=== PATIENT | male | born 1955 | race African-American/Black ===

== ENCOUNTER 2019-03-27 16:56 | Inpatient (IN) | payer OTHER ==
[2019-03-27 19:46] VITALS: BMI 26.6
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
[2019-03-27] MEDS ORDERED: MAGNESIUM CITRATE 300 ML BOTTLE PO PRN (20:53)
[2019-03-27] MEDS ORDERED: BISMUTH SUBSALICYLATE 524 MG/30 ML UD PO PRN (20:53)
[2019-03-27] MEDS ORDERED: P-EPHED 60MG/TRIPROLIDI 2.5MG TABLET PO PRN (20:53)
[2019-03-27] MEDS ORDERED: IBUPROFEN 400 MG TABLET (FP) PO PRN ×2 (20:53)
[2019-03-27] MEDS ORDERED: DICYCLOMINE HCL 10 MG CAPSULE PO PRN (20:53)
[2019-03-27] MEDS ORDERED: guaiFENesin 200 MG/10 ML 10 ML UNIT-DOSE CUPS PO PRN (20:53)
[2019-03-27] MEDS ORDERED: cloNIDine HCL 0.1 MG TABLET PO PRN (20:53)
[2019-03-27] MEDS ORDERED: NICOTINE POLACRILEX 2 MG GUM BUC PRN (20:53)
[2019-03-27] MEDS ORDERED: MAGNESIUM HYDROX 2400MG/30ML ORAL SUSPENSION 30 ML CUP PO PRN (20:53)
[2019-03-27] MEDS ORDERED: MENTHOL/PHENOL 1 EACH UD MM PRN (20:53)
[2019-03-27] MEDS ORDERED: MELATONIN 5 MG TABLETS PO PRN (20:53)
[2019-03-27] MEDS ORDERED: hydrOXYzine PAMOATE 25 MG CAPSULE (FP) PO PRN (20:53)
[2019-03-27] MEDS ORDERED: MAG HYDROX/AL HYDROX/SIMETH 30 ML UNIT-DOSE CUP PO PRN (20:53)
[2019-03-27] MEDS ORDERED: METHOCARBAMOL 500 MG TABLET PO PRN (20:53)
[2019-03-27] MEDS ORDERED: ONDANSETRON *ODT* 4 MG TABLET SL PRN (20:53)
[2019-03-27] MEDS ORDERED: ACETAMINOPHEN 325 MG TABLET (FP) PO PRN ×2 (20:53)
[2019-03-27] MEDS ORDERED: NALOXONE HCL 0.4 MG/ML VIAL IVPUSH PRN (20:53)
[2019-03-27] MEDS ORDERED: METHADONE HCL 5 MG TABLET (FOR DETOX USE ONLY) PO ONE (21:00)
[2019-03-27] MEDS ORDERED: clonazePAM 0.5 MG TABLET PO PRN (21:06)
[2019-03-27] MEDS: THIAMINE HCL 100 MG TABLET (FP) PO SCH (21:54)
[2019-03-27] MEDS: TAMSULOSIN HCL 0.4 MG CAP PO SCH (21:59)
[2019-03-27] MEDS: GABAPENTIN 100 MG CAPSULE (FP) PO SCH (21:59)
[2019-03-27] MEDS ORDERED: METHADONE HCL 10 MG TABLET (FOR DETOX USE ONLY) PO ONE (23:00)
[2019-03-28] MEDS: GABAPENTIN 100 MG CAPSULE (FP) PO SCH ×3 (06:08→22:20)
--- NOTE | 2019-03-28 08:53 | EKG ---
Test Reason : Blood Pressure : / mmHG Vent. Rate : 051 BPM Atrial Rate : 051 BPM P-R Int : 232 ms QRS Dur : 110 ms QT Int : 424 ms P-R-T Axes : 066 040 056 degrees QTc Int : 390 ms SINUS BRADYCARDIA WITH 1ST DEGREE A-V BLOCK INCOMPLETE RIGHT BUNDLE BRANCH BLOCK VOLTAGE CRITERIA FOR LEFT VENTRICULAR HYPERTROPHY ABNORMAL ECG NO PREVIOUS ECGS AVAILABLE Confirmed by JOANN JASSO, JUAN ([id number]) on 03/28/2019 8:52:52 AM Referred By: Confirmed By:JUAN DAVID MD
[2019-03-28] MEDS ORDERED: METHADONE HCL 5 MG TABLET (FOR DETOX USE ONLY) PO ONE (10:00)
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
[2019-03-28] MEDS: NICOTINE 14 MG/24 HOURS TOPICAL PATCH TD SCH (10:28)
[2019-03-28] MEDS: PRENATAL VITAMINS W/ FOLIC ACID TABLET (FP) PO SCH (10:32)
[2019-03-28] MEDS: amLODIPine BESYLATE 5 MG TABLET (FP) PO SCH (10:32)
[2019-03-28] MEDS ORDERED: TRIMETHOBENZAMIDE HCL 200MG/2ML INJ IM PRN (10:47)
[2019-03-28 10:51] LABS: HEMOGLOBIN 10.6 GM/dL (11.7-16.9); MCHC 32.1 g/dl (32.0-35.9); MEAN CELL VOLUME 84.2 fl (80-96); MEAN PLT VOLUME 8.1 fl (7.5-11.1); PLATELET COUNT 332 K/MM3 (134-434); RBC 3.92 M/mm3 (4.00-5.60)
[2019-03-28 11:10] LABS: EPI CELLS 0.7 /HPF (0-5/HPF); URINE APPEARANCE TURBID; URINE BACTERIA 5.7 /hpf (NEGATIVE); URINE BILIRUBIN 1+ (NEGATIVE); URINE CASTS 3 /lpf (0-8); URINE COLOR DK YELLOW; URINE GLUCOSE (UA) NEGATIVE (NEGATIVE); URINE KETONE TRACE (NEGATIVE); URINE LEUK ESTERASE TRACE (NEGATIVE); URINE NITRITE NEGATIVE (NEGATIVE); URINE PROTEIN TRACE (NEGATIVE); URINE WBC 1 /hpf (0-5)
[2019-03-28 11:33] LABS: ALK PHOS 81 U/L (45-117); BILIRUBIN,TOTAL 0.4 mg/dL (0.2-1); CALCIUM 9.5 mg/dL (8.5-10.1); CHLORIDE 100 mmol/L (98-107); CREATININE 0.9 mg/dL (0.55-1.3); GLUCOSE,RANDOM 100 mg/dL (74-106); POTASSIUM 3.4 mmol/L (3.5-5.1); SGPT/ALT 40 U/L (13-61); SODIUM 138 mmol/L (136-145)
[2019-03-28 12:10] LABS: URINE RBC 14.9 /hpf (0-4)
[2019-03-28 12:12] LABS: URINE CRYSTALS CALCIUM OXALATE /hpf
[2019-03-28 13:36] LABS: ALBUMIN 3.8 g/dl (3.4-5.0); ANION GAP 4 MMOL/L (8-16); BLOOD UREA NITROGEN 13 mg/dL (7-18); CO2 34 mmol/L (21-32); SGOT/AST 40 U/L (15-37)
[2019-03-28] MEDS: SERTRALINE HCL 50 MG TABLET (FP) PO SCH (14:52)
[2019-03-28] MEDS ORDERED: ONDANSETRON *ODT* 4 MG TABLET SL ONE (15:23)
[2019-03-28] MEDS ORDERED: POTASSIUM CHLORIDE ORAL LIQUID 20 MEQ/15 ML PO ONE ×2 (15:50→21:00)
--- NOTE | 2019-03-28 16:04 | PN ---
BHS COWS - Scale Resting Pulse: 0= [place] 80 or Below Sweatin= Chills/Flushing Restless Observation: 3= Extraneous Movement Pupil Size: 0= Normal to Room Light Bone or Joint Aches: 2= Severe Diffuse Aches Runny Nose/ Eye Tearin= Runny Nose/Eyes GI Upset > 30mins: 3= Vomiting/Diarrhea Tremor Observation of Outstretched Hands: 2= Slight Tremor Visible Yawning Observation: 0= None Anxiety or Irritability: 2=Irritable/Anxious Goose Flesh Skin: 0=Smooth Skin COWS Score: 15 BHS Progress Note (SOAP) Subjective: Stomachache, N/V/D, interrupted sleep, anxious. As per assigned RN, patient vomited moderate amount of clear liquids mixed with a little bit of food content. Patient agreed to clear liquid diet until vomiting subsided. Objective: 03/28/19 15:54 Last Vital Signs Temp Pulse Resp BP Pulse Ox 97.9 F 59 L 16 159/91 03/28/19 14:03 03/28/19 14:03 03/28/19 14:03 03/28/19 14:03 B/P elevated (has htn, on medication) Laboratory Tests 03/28/19 03/28/19 03/28/19 07:50 07:50 07:50 WBC 9.0 RBC 3.92 L Hgb 10.6 L Hct 33.0 L MCV 84.2 MCH 27.0 MCHC 32.1 RDW 18.0 H Plt Count 332 MPV 8.1 Sodium 138 Potassium 3.4 L Chloride 100 Carbon Dioxide 34 H Anion Gap 4 L BUN 13 Creatinine 0.9 Creat Clearance w eGFR 84.96 Random Glucose 100 Calcium 9.5 Total Bilirubin 0.4 AST 40 H ALT 40 Alkaline Phosphatase 81 Total Protein 8.0 Albumin 3.8 Urine Color Urine Appearance Urine pH Ur Specific [place] Urine Protein Urine Glucose (UA) Urine Ketones Urine Blood Urine Nitrite Urine Bilirubin Urine Urobilinogen Ur Leukocyte Esterase Urine WBC (Auto) Urine RBC (Auto) Urine Casts (Auto) U Epithel Cells (Auto) Urine Crystals (Auto) Urine Bacteria (Auto) RPR Titer Nonreactive 03/28/19 08:56 WBC RBC Hgb Hct MCV MCH MCHC RDW Plt Count MPV Sodium Potassium Chloride Carbon Dioxide Anion Gap BUN Creatinine Creat Clearance w eGFR Random Glucose Calcium Total Bilirubin AST ALT Alkaline Phosphatase Total Protein Albumin Urine Color Dk yellow Urine Appearance Turbid Urine pH 7.0 Ur Specific [place] 1.027 Urine Protein Trace Urine Glucose (UA) Negative Urine Ketones Trace H Urine Blood Negative Urine Nitrite Negative Urine Bilirubin 1+ H Urine Urobilinogen 1.0 Ur Leukocyte Esterase Trace Urine WBC (Auto) 1 Urine RBC (Auto) 14.9 Urine Casts (Auto) 3 U Epithel Cells (Auto) 0.7 Urine Crystals (Auto) Calcium oxalate Urine Bacteria (Auto) 5.7 RPR Titer Labs reviewed: mild anemia, mild hypokalemia and abnormal UA Assessment: 03/28/19 15:56 Withdrawal symptoms Noted with mild anemia, hypokalemia and abnormal UA Plan: Continue detox Encouraged PO water hydration Zofran 4mg SL x 1 dose for nausea, continue zofran 4mg SL q12hr prn Tigan 200mg IM q8hr prn for vomiting Clear liquid diet for now due to vomiting, can advance diet as tolerated Mild anemia: most likely r/t substance use, encouraged abstinence from illicit drug use Hypokalemia: K Dur 40 MEq elixir x 2 doses (give at least 4 hours apart) then K Dur 20 MEq PO daily, send BMP in AM (K Dur continues due to vomiting) Abnormal UA: encouraged PO water hydration, repeat UA in AM
[2019-03-28] MEDS: QUEtiapine FUMARATE 300 MG TABLET PO SCH (22:20)
[2019-03-28] MEDS: TAMSULOSIN HCL 0.4 MG CAP PO SCH (22:20)
[2019-03-28] MEDS: THIAMINE HCL 100 MG TABLET (FP) PO SCH (22:21)
[2019-03-29] MEDS: GABAPENTIN 100 MG CAPSULE (FP) PO SCH (07:55)
[2019-03-29] MEDS ORDERED: METHADONE HCL 10 MG TABLET (FOR DETOX USE ONLY) PO ONE (10:00)
[2019-03-29] MEDS: amLODIPine BESYLATE 5 MG TABLET (FP) PO SCH (10:23)
[2019-03-29] MEDS: SERTRALINE HCL 50 MG TABLET (FP) PO SCH (10:23)
[2019-03-29] MEDS: PRENATAL VITAMINS W/ FOLIC ACID TABLET (FP) PO SCH (10:23)
[2019-03-29] MEDS: NICOTINE 14 MG/24 HOURS TOPICAL PATCH TD SCH (10:23)
[2019-03-29] MEDS: POTASSIUM CHLORIDE TABS 20 MEQ TABLET.ER (FP) PO SCH (10:31)
--- NOTE | 2019-03-29 11:21 | PN ---
BHS COWS - Scale Resting Pulse: 1= [place] 81-100 Sweatin= Chills/Flushing Restless Observation: 1= Difficult to Sit Still Pupil Size: 0= Normal to Room Light Bone or Joint Aches: 2= Severe Diffuse Aches Runny Nose/ Eye Tearin= None GI Upset > 30mins: 3= Vomiting/Diarrhea Tremor Observation of Outstretched Hands: 0= None Yawning Observation: 1= 1-2x During Session Anxiety or Irritability: 4=Extreme Anxiety Goose Flesh Skin: 0=Smooth Skin COWS Score: 13 BHS Progress Note (SOAP) Subjective: Interrupted Sleep, Anxious, Diarrhea, Sweating, Vomiting, Body Aches. Objective: PATIENT A & O X 3, OBSERVED AMBULATING ON UNIT UNASSISTED. IN NO ACUTE DISTRESS. 03/29/19 11:18 Vital Signs Temperature 98.8 F 03/29/19 09:26 Pulse Rate 67 03/29/19 09:26 Respiratory Rate 16 03/29/19 09:26 Blood Pressure 140/81 03/29/19 09:26 O2 Sat by Pulse Oximetry (%) Laboratory Tests 03/28/19 03/28/19 03/28/19 07:50 07:50 07:50 WBC 9.0 RBC 3.92 L Hgb 10.6 L Hct 33.0 L MCV 84.2 MCH 27.0 MCHC 32.1 RDW 18.0 H Plt Count 332 MPV 8.1 Sodium 138 Potassium 3.4 L Chloride 100 Carbon Dioxide 34 H Anion Gap 4 L BUN 13 Creatinine 0.9 Creat Clearance w eGFR 84.96 Random Glucose 100 Calcium 9.5 Total Bilirubin 0.4 AST 40 H ALT 40 Alkaline Phosphatase 81 Total Protein 8.0 Albumin 3.8 Urine Color Urine Appearance Urine pH Ur Specific [place] Urine Protein Urine Glucose (UA) Urine Ketones Urine Blood Urine Nitrite Urine Bilirubin Urine Urobilinogen Ur Leukocyte Esterase Urine WBC (Auto) Urine RBC (Auto) Urine Casts (Auto) U Epithel Cells (Auto) Urine Crystals (Auto) Urine Bacteria (Auto) RPR Titer Nonreactive 03/28/19 08:56 WBC RBC Hgb Hct MCV MCH MCHC RDW Plt Count MPV Sodium Potassium Chloride Carbon Dioxide Anion Gap BUN Creatinine Creat Clearance w eGFR Random Glucose Calcium Total Bilirubin AST ALT Alkaline Phosphatase Total Protein Albumin Urine Color Dk yellow Urine Appearance Turbid Urine pH 7.0 Ur Specific [place] 1.027 Urine Protein Trace Urine Glucose (UA) Negative Urine Ketones Trace H Urine Blood Negative Urine Nitrite Negative Urine Bilirubin 1+ H Urine Urobilinogen 1.0 Ur Leukocyte Esterase Trace Urine WBC (Auto) 1 Urine RBC (Auto) 14.9 Urine Casts (Auto) 3 U Epithel Cells (Auto) 0.7 Urine Crystals (Auto) Calcium oxalate Urine Bacteria (Auto) 5.7 RPR Titer LABS NOTED. RESULTS OF BMP AND OF REPEAT UA PENDING. 03/29/19 11:20 Assessment: 03/29/19 11:19 WITHDRAWAL SYMPTOMS. HYPOKALEMIA. 03/29/19 11:20 Plan: CONTINUE DETOX. INCREASE DAILY PO FLUID / WATER INTAKE. CONTINUE K-DUR DAILY. PRN TIGAN IM FOR NAUSEA / VOMITING. PRN PEPTO-BISMOL PO FOR DIARRHEA.
--- NOTE | 2019-03-29 14:23 | PN ---
S Progress Note Note: Received notification from clinical scientist Mary Grace Louis that Patien t no longer wish to have Clear Liquid diet as ordered by medical provider yesterday for frequent vomiting.
[2019-03-29] MEDS: GABAPENTIN 300 MG CAPSULE (FP) PO SCH ×2 (15:29→22:25)
--- NOTE | 2019-03-29 15:47 | PN ---
[facility] Progress Note Note: Received Telephone call from Adilson Dickerson RN, informing that Patient has had elevated Temp. X last two readings. However, Patient Was given dose of Tylenol X 1 (@ 13:15) after initial elevated reading (101.7), and that second reading was later reduced to 100.0. Patient also reports H/A affecting Left side of head (Patient did not report this earlier during AM Rounds assessment). Patient deos reprot that Nausea /Vomiting that he reported to OCCUPATIONAL SAFETY AND HEALTH MANAGER earlier on in AM has subsided considerably at this time. Ms. Dickerson advised to give Patient a dose of PRN Ibuprofen at this time and to monitor and to assess Temp. and H/A in the next 1-2 hours. Shukri Marcelino OCCUPATIONAL SAFETY AND HEALTH MANAGER
[2019-03-29] MEDS: THIAMINE HCL 100 MG TABLET (FP) PO SCH (22:25)
[2019-03-29] MEDS: QUEtiapine FUMARATE 300 MG TABLET PO SCH (22:25)
[2019-03-29] MEDS: TAMSULOSIN HCL 0.4 MG CAP PO SCH (22:26)
[2019-03-30] MEDS ORDERED: METHADONE HCL 5 MG TABLET (FOR DETOX USE ONLY) PO ONE (06:00)
[2019-03-30] MEDS: GABAPENTIN 300 MG CAPSULE (FP) PO SCH (06:38)
[2019-03-30 08:20] VITALS: BP 130/7; PULSE 60; TEMP 96.1
--- NOTE | 2019-03-30 08:49 | DS ---
[facility] Detox Discharge Summary Admission Date: 03/27/19 Discharge Date: 03/30/19 - History Present History: Alcohol Dependence, Cannabis Dependence, Opioid Dependence, Sedative Dependence - Physical Exam Results Vital Signs: Vital Signs Temperature 96.1 F L 03/30/19 08:20 Pulse Rate 60 03/30/19 08:20 Respiratory Rate 18 03/30/19 08:20 Blood Pressure 130/7 L 03/30/19 08:20 O2 Sat by Pulse Oximetry (%) - Treatment Hospital Course: Detox Protocol Followed, Detoxed Safely, Responded well, Discharged Condition Good, Rehab Referral Accepted - Medication Discharge Medications: Ambulatory Orders Gabapentin [Neurontin -] 600 mg PO TID 07/30/16 Sertraline HCl [Zoloft -] 150 mg PO DAILY 07/30/16 Buspirone HCl [Buspar -] 10 mg PO BID@1000,1400 #60 tablet 08/23/16 Quetiapine Fumarate [Seroquel -] 300 mg PO HS #30 tablet 08/23/16 Tamsulosin HCl [Flomax -] 0.4 mg PO HS #30 cap.er.24h 08/23/16 Amlodipine Besylate [Norvasc -] 5 mg PO DAILY #30 tablet 08/26/16 - Diagnosis (1) Cannabis dependence Current Visit: Yes Status: Chronic (2) Cocaine dependence Current Visit: Yes Status: Chronic Qualifiers: Substance use status: uncomplicated Qualified Code(s): F14.20 - Cocaine dependence, uncomplicated (3) Opioid dependence with withdrawal Current Visit: Yes Status: Chronic (4) Substance induced mood disorder Current Visit: Yes Status: Acute (5) Substance-induced sleep disorder Current Visit: Yes Status: Acute (6) Benign prostate hyperplasia Current Visit: Yes Status: Chronic Qualifiers: Lower urinary tract symptom presence: symptoms absent (7) Bipolar 1 disorder, depressed Current Visit: Yes Status: Chronic (8) Hypertension Current Visit: Yes Status: Chronic Qualifiers: Hypertension type: essential hypertension Qualified Code(s): I10 - Essential (primary) hypertension (9) Nicotine dependence Current Visit: Yes Status: Chronic Qualifiers: Nicotine product type: cigarettes Substance use status: uncomplicated Qualified Code(s): F17.210 - Nicotine dependence, cigarettes, uncomplicated (10) Schizoaffective disorder Current Visit: Yes Status: Chronic (11) Bipolar disorder Current Visit: Yes Status: Ruled-out (12) Benzodiazepine dependence Current Visit: Yes Status: Chronic - AMA Did Patient Leave Against Medical Advice: No (referred to [facility] inpatient rehab)
[2019-03-30] MEDS: SERTRALINE HCL 50 MG TABLET (FP) PO SCH (09:13)
[2019-03-30] MEDS: POTASSIUM CHLORIDE TABS 20 MEQ TABLET.ER (FP) PO SCH (09:13)
[2019-03-30] MEDS: PRENATAL VITAMINS W/ FOLIC ACID TABLET (FP) PO SCH (09:13)
[2019-03-30] MEDS: amLODIPine BESYLATE 5 MG TABLET (FP) PO SCH (09:13)
[2019-03-30] MEDS: NICOTINE 14 MG/24 HOURS TOPICAL PATCH TD SCH (10:15)
[2019-03-30 10:24] LABS: ANION GAP 3 MMOL/L (8-16); BLOOD UREA NITROGEN 15 mg/dL (7-18); CALCIUM 8.9 mg/dL (8.5-10.1); CHLORIDE 105 mmol/L (98-107); CO2 32 mmol/L (21-32); CREATININE 0.8 mg/dL (0.55-1.3); GLUCOSE,RANDOM 71 mg/dL (74-106); SODIUM 140 mmol/L (136-145)
[2019-03-30 13:32] LABS: URINE APPEARANCE Clear; URINE BILIRUBIN Negative (NEGATIVE); URINE COLOR Yellow; URINE GLUCOSE (UA) >=1000 (NEGATIVE); URINE KETONE Negative (NEGATIVE); URINE LEUK ESTERASE Negative (NEGATIVE); URINE NITRITE Negative (NEGATIVE); URINE PROTEIN Negative (NEGATIVE); URINE UROBILINOGEN 0.2 mg/dL (0.2-1.0)
== END 2019-03-30 11:00 | disposition home or self-care (01) | DRG 897 ==
LOC: YASAS 16:56 → Y6N 20:11
PROVIDERS: ADMIT Surgery; ATTEND Surgery
PROC: HZ2ZZZZ Detoxification Services for Substance Abuse Treatment (ICD-10-PCS; principal; 2019-03-27)
DX: F11.23 Opioid dependence with withdrawal (principal); F13.20 Sedative, hypnotic or anxiolytic dependence, uncomplicated; F14.20 Cocaine dependence, uncomplicated; F19.282 Other psychoactive substance dependence with psychoactive substance-induced sleep disorder; F12.20 Cannabis dependence, uncomplicated; F17.210 Nicotine dependence, cigarettes, uncomplicated; F19.24 Other psychoactive substance dependence with psychoactive substance-induced mood disorder; F31.9 Bipolar disorder, unspecified; F25.9 Schizoaffective disorder, unspecified; I10 Essential (primary) hypertension; E87.6 Hypokalemia; N40.0 Benign prostatic hyperplasia without lower urinary tract symptoms; D64.9 Anemia, unspecified; R82.90 Unspecified abnormal findings in urine; Z91.89 Other specified personal risk factors, not elsewhere classified; Z96.642 Presence of left artificial hip joint; Z59.0 Homelessness
CPT/HCPCS: 36415; 80048; 80053; 81003; 85027; 86593; 93005; 93010; Q0162